=== PATIENT | female | born 1990 | race Caucasian/White ===

== ENCOUNTER 2018-07-20 03:18 | Emergency (ER) | payer OTHER ==
[~2018-07-20] VITALS: Ht 160 cm; Wt 65.8 kg
[~2018-07-20 03:18] MED LIST: BUPRENORPHINE HC2 MG SL
[2018-07-20] MEDS ORDERED: SUBOXONE 2 MG-1 EAC1 (03:39)
[2018-07-20] MEDS ORDERED: HYDROCODONE-ACE15 ML PO (04:31)
[2018-07-20 04:44] VITALS: BP 112/77
== END 2018-07-20 04:46 | disposition home or self-care (01) ==
LOC: ER 03:18
DX: S40.021A Contusion of right upper arm, initial encounter (principal); S10.91XA Abrasion of unspecified part of neck, initial encounter; S19.81XA Other specified injuries of larynx, initial encounter; Y04.2XXA Assault by strike against or bumped into by another person, initial encounter; Y93.89 Activity, other specified; Y92.89 Other specified places as the place of occurrence of the external cause; Y99.8 Other external cause status